=== PATIENT | male | born 1935 | race Caucasian/White ===

== ENCOUNTER 2016-12-18 07:47 | Day surgery (SDC) | payer MEDICARE, BC ==
[2016-12-18] MEDS ORDERED: Sodium Chloride 0.9% 10 ML Syringe FLUSH PRN (08:00)
[2016-12-18] MEDS ORDERED: Lactated Ringers 1,000 ML IV SCH (08:00)
[2016-12-18] MEDS ORDERED: Midazolam 1 MG/ML 2 ML SDV ONE ×2 (08:26→09:09)
[2016-12-18] MEDS ORDERED: Propofol 200 MG/20 ML SDV ONE ×2 (08:27→09:09)
[2016-12-18 10:00] VITALS: BP 133/77
--- NOTE | 2016-12-18 10:42 | OR ---
Date of Procedure: 12/18/2016 PREOPERATIVE DIAGNOSIS: Hematuria. POSTOPERATIVE DIAGNOSES: 1. Hematuria. No evidence of pathology. 2. History of benign prostatic hyperplasia. 3. History of cancer of the prostate. PROCEDURE: Cystoscopy. ANESTHESIA: MAC and local. COMPLICATION: None. SPECIMEN: None. DRAIN: None. BLOOD LOSS: None. HISTORY: This is a gentleman who had gross blood with clots, 10/2016. He has had no recurrence and no blood previously. He does have a history of carcinoma of the prostate. We are following with active surveillance. He has negligible lower urinary tract symptoms. WHAT WAS DONE: The patient was placed on the operating table in the lithotomy position. The genitals were prepped and draped sterilely. Xylocaine gel was instilled. Cystoscope was inserted. Urethra is unremarkable. Prostate is large, trilobar, and obstructing. The bladder shows no mucosal lesions, no erythema, and no stones. The bladder was emptied. The cystoscope was removed. He tolerated this without difficulty. APOLLO Olea MD /[id number]
== END 2016-12-18 10:30 | disposition home or self-care (01) ==
LOC: LL.SDS 07:47
PROVIDERS: ATTEND Urology
DX: R31.0 Gross hematuria (principal); I10 Essential (primary) hypertension; E11.9 Type 2 diabetes mellitus without complications; E78.5 Hyperlipidemia, unspecified; M06.9 Rheumatoid arthritis, unspecified; J44.9 Chronic obstructive pulmonary disease, unspecified; D72.829 Elevated white blood cell count, unspecified; Z85.46 Personal history of malignant neoplasm of prostate; Z87.891 Personal history of nicotine dependence; Z86.718 Personal history of other venous thrombosis and embolism; Z86.711 Personal history of pulmonary embolism; Z86.010 Personal history of colon polyps; Z87.01 Personal history of pneumonia (recurrent); Z79.01 Long term (current) use of anticoagulants; Z79.4 Long term (current) use of insulin; Z79.899 Other long term (current) drug therapy; Z98.49 Cataract extraction status, unspecified eye; Z88.8 Allergy status to other drugs, medicaments and biological substances; Z90.49 Acquired absence of other specified parts of digestive tract; Z90.79 Acquired absence of other genital organ(s); Z98.890 Other specified postprocedural states
CPT/HCPCS: 52000; 82962; A4216; J2250; J2704; J7120; 00910-QZ

== ENCOUNTER 2017-06-26 11:28 | Day surgery (SDC) | payer MEDICARE, BC ==
[~2017-06-26 11:28] MED LIST: Lactated Ringers 1,000 ML IV SCH; Sodium Chloride 0.9% 10 ML Syringe FLUSH PRN
[2017-06-26] MEDS ORDERED: Midazolam 1 MG/ML 2 ML SDV ONE ×2 (12:31→12:42)
[2017-06-26] MEDS ORDERED: fentaNYL 100 MCG/2 ML SDV ONE ×2 (12:31→12:42)
[2017-06-26] MEDS ORDERED: Propofol 200 MG/20 ML SDV ONE ×2 (12:32→12:42)
[2017-06-26] MEDS ORDERED: Lidocaine 2% 5 ML SDV ONE (12:42)
--- NOTE | 2017-06-26 12:42 | PCM.HPR ---
H & P Addendum review - H & P Addendum Review Date of Original H & P: 06/20/17 Date Reviewed: 06/26/17 Time Reviewed: 12:41 Patient was Examined: No Changes
--- NOTE | 2017-06-26 13:27 | PCM.OPNOTE ---
- General Post-Op/Procedure Note Date of Surgery/Procedure: 06/26/17 Operative Procedure(s): EGD. Colonoscopy with polypectomy Findings: Normal EGD; Colon Polyps Pre Op Diagnosis: Anemia, hx polyps Post-Op Diagnosis: Same Anesthesia Technique: TOMA Primary Surgeon: Kye Schaefer Anesthesia Provider: Sara Zacarias Complications: None Condition: Good
[2017-06-26 17:59] VITALS: BP 153/91
--- NOTE | 2017-06-27 08:10 | OR ---
Date of Procedure: 06/26/2017 PREOPERATIVE DIAGNOSES: 1. Anemia. 2. History of colon polyps. POSTOPERATIVE DIAGNOSES: 1. Normal EGD. 2. Colon polyps. PROCEDURE: 1. EGD. 2. Colonoscopy with polypectomy. ANESTHESIA: IV sedation. PROCEDURE IN DETAIL: The patient was brought to the procedure room, where he was placed on his left side and IV sedation administered. Oral bite block was placed and the upper endoscope advanced into the esophagus under direct vision without difficulty. Vocal cords were viewed and were normal. There was a small amount of blood-tinged mucosa in the hypopharynx upon withdrawing the scope, but no mucosal abnormalities were noted, and no active bleeding was identified. I suspect there was some minimal scope trauma upon passing into the cervical esophagus initially. The scope was advanced to the 3rd portion of the duodenum. The duodenum and pylorus were normal. Antrum and body of the stomach were normal. Retroflexion reveals a normal-appearing fundus. Squamocolumnar junction is normal. Air was removed from the stomach and the scope withdrawn through the remaining esophagus which appears normal. The patient tolerated this portion of the procedure well. Next, colonoscopy was performed after digital rectal exam was done which was normal. Colonoscope was inserted and advanced to the level of the cecum without difficulty. Cecal position was confirmed by identifying the appendiceal lumen and the ileocecal valve. Prep was good and surfaces were well visualized. In the cecum, was a 6 mm sessile polyp removed with a cautery snare and retrieved in the polyp trap. The remaining ascending colon was normal. In the proximal transverse colon, was a sessile 5 x 8 mm polyp removed with a cautery snare and retrieved in the polyp trap. The remaining transverse colon was normal. In the descending colon at 70 cm, was a 6 mm sessile polyp removed with a cautery snare and retrieved in the polyp trap. The remaining descending and sigmoid colon were normal. Rectum was normal and retroflexion was normal. Air was removed. The scope withdrawn. The patient tolerated the procedure well and returned to recovery in stable condition. I will have the patient follow up with [facility], next week for review of pathology report and further evaluation of the anemia if indicated. APOLLO STORY MD /[id number]
== END 2017-06-26 16:00 | disposition home or self-care (01) ==
LOC: LL.SDS 11:28
PROVIDERS: ATTEND Surgery
DX: D12.0 Benign neoplasm of cecum (principal); D12.3 Benign neoplasm of transverse colon; D12.4 Benign neoplasm of descending colon; E11.9 Type 2 diabetes mellitus without complications; I10 Essential (primary) hypertension; K21.9 Gastro-esophageal reflux disease without esophagitis; M06.9 Rheumatoid arthritis, unspecified; D72.829 Elevated white blood cell count, unspecified; D45 Polycythemia vera; D64.9 Anemia, unspecified; I82.409 Acute embolism and thrombosis of unspecified deep veins of unspecified lower extremity; Z86.010 Personal history of colon polyps; Z79.01 Long term (current) use of anticoagulants; Z79.4 Long term (current) use of insulin
CPT/HCPCS: 00813; 43235; 45385; 82962; 88305; J2250; J2704; J3010; J7120

== ENCOUNTER 2018-06-17 07:38 | Observation (INO) | payer MEDICARE, BC ==
[~2018-06-17 07:38] MED LIST changes: -Lactated Ringers 1,000 ML IV SCH
[2018-06-17] MEDS: Lactated Ringers 1,000 ML IV SCH ×3 (08:15→21:53)
[2018-06-17] MEDS ORDERED: fentaNYL 100 MCG/2 ML SDV ONE ×2 (08:20→08:45)
[2018-06-17] MEDS ORDERED: Propofol 200 MG/20 ML SDV ONE ×2 (08:21→08:45)
[2018-06-17] MEDS ORDERED: ceFAZolin 1 GM Vial ONE (08:45)
[2018-06-17] MEDS ORDERED: Lidocaine 2% HCl 11 ML Jelly Filled Syringe TOP ONE (09:05)
[2018-06-17] MEDS ORDERED: Acetaminophen 325 MG Tab PO PRN (09:30)
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
[2018-06-17] MEDS ORDERED: Dextrose 5%-0.45% NaCl 1,000 ML IV SCH (09:45)
--- NOTE | 2018-06-17 11:08 | OR ---
Date of Procedure: 06/17/2018 PREOPERATIVE DIAGNOSIS: Hematuria with bladder mass evident on CT scan. POSTOPERATIVE DIAGNOSIS: Benign prostatic hyperplasia. PROCEDURE: Redo transurethral resection of the prostate. COMPLICATIONS: None. SPECIMEN: Prostate. DRAINS: A 22-[place] 3-way Sesay catheter to CBI and to gravity. ANESTHESIA: Spinal. BLOOD LOSS: Negligible. HISTORY: This gentleman has a history of carcinoma of the prostate diagnosed by [facility] in 2005. We followed so far with active surveillance. He does have a history of lower urinary tract symptoms, currently with frequency and slow stream. He has had a transurethral resection of the prostate in 08/2013. WHAT WAS DONE: The patient was placed on the operating table in the lithotomy position under spinal anesthesia. The genitals were prepped and draped sterilely. Examination of the bladder revealed just regrowth-left lateral lobe projecting into the bladder. I see no other bladder lesions. The left lateral lobe was reresected down to the contours of the circular fibers of the bladder neck and smoothed down onto the prostate wall and floor. Specimen was removed from the prostate. Hemostasis was assured with electrocautery. Scope was removed. Sesay catheter was inserted. He tolerated this procedure without difficulty. APOLLO Olea MD /[id number]
[2018-06-17] MEDS: Metoprolol Tartrate 25 MG Tab PO SCH ×2 (13:54→18:13)
[2018-06-17] MEDS: amLODIPine 5 MG Tab PO SCH (13:54)
[2018-06-17] MEDS: metFORMIN 500 MG Tab PO SCH (18:13)
[2018-06-17] MEDS ORDERED: Insulin Lispro 100 Units/ML 3 ML Vial SUBCUT ONE (21:30)
[2018-06-18] MEDS: Lactated Ringers 1,000 ML IV SCH (05:55)
[2018-06-18] MEDS ORDERED: Aspirin 81 MG Tab.EC PO SCH (08:00)
[2018-06-18] MEDS ORDERED: Dutasteride 0.5 MG Cap PO SCH (08:00)
[2018-06-18] MEDS ORDERED: Apixaban 5 MG Tab PO SCH (08:00)
[2018-06-18 08:03] VITALS: BP 144/75
[2018-06-18] MEDS: Metoprolol Tartrate 25 MG Tab PO SCH (08:07)
[2018-06-18] MEDS: amLODIPine 5 MG Tab PO SCH (08:07)
[2018-06-18] MEDS: metFORMIN 500 MG Tab PO SCH (08:08)
--- NOTE | 2018-06-18 11:47 | PCM.PN ---
- General Info Date of Service: 06/18/18 Admission Dx/Problem (Free Text): Admission Diagnosis/Problem Admission Diagnosis/Problem BPH loc w urin obs/LUTS Functional Status: Reports: Pain Controlled, Tolerating Diet, Ambulating, Urinating - Review of Systems General: Reports: No Symptoms HEENT: Reports: No Symptoms Pulmonary: Reports: No Symptoms Cardiovascular: Reports: No Symptoms Gastrointestinal: Reports: No Symptoms Genitourinary: Reports: Frequency Musculoskeletal: Reports: No Symptoms Skin: Reports: No Symptoms Neurological: Reports: No Symptoms Psychiatric: Reports: No Symptoms - Patient Data Vitals - Most Recent: Last Vital Signs Temp 99.0 F 06/18/18 08:00 Pulse 98 06/18/18 08:07 Resp 17 06/18/18 08:00 BP 144/75 H 06/18/18 08:07 Pulse Ox 92 L 06/18/18 08:00 Weight - Most Recent: 175 lb 11.2 oz I&O - Last 24 Hours: Intake & Output 06/17/18 06/18/18 06/18/18 22:59 06:59 14:59 Intake Total 6350 4101 460 Output Total 5600 4075 Balance 750 26 460 Lab Results Last 24 Hours: Laboratory Results - last 24 hr 06/17/18 06/17/18 06/18/18 Range/Units 16:57 20:32 01:48 POC Glucose 393 H* 411 H* 172 H (65-110) mg/dl 06/18/18 06/18/18 Range/Units 07:32 11:27 POC Glucose 142 H 240 H (65-110) mg/dl Med Orders - Current: Current Medications Acetaminophen (Tylenol) 650 mg PO Q4H PRN PRN Reason: analgesia/fever Amlodipine Besylate (Norvasc) 5 mg PO DAILY [facility] Last Admin: 06/18/18 08:07 Dose: 5 mg Apixaban (Eliquis) 5 mg PO BID [facility] Last Admin: 06/18/18 08:07 Dose: 5 mg Aspirin (Halfprin) 81 mg PO DAILY [facility] Last Admin: 06/18/18 08:07 Dose: 81 mg Dutasteride (Avodart) 0.5 mg PO DAILY [facility] Last Admin: 06/18/18 08:08 Dose: 0.5 mg Lactated Ringer's (Ringers, Lactated) 1,000 mls @ 125 mls/hr IV ASDIRECTED [facility] Last Admin: 06/18/18 05:55 Dose: 125 mls/hr Metformin HCl (Glucophage) 1,000 mg PO BID [facility] Last Admin: 06/18/18 08:08 Dose: 1,000 mg Metoprolol Tartrate (Lopressor) 25 mg PO BID [facility] Last Admin: 06/18/18 08:07 Dose: 25 mg Insulin Detemir [ (Levemir]) 24 unit SUBCUT BEDTIME [facility] Last Admin: 06/17/18 19:24 Dose: 24 unit Sodium Chloride (Saline Flush) 10 ml FLUSH ASDIRECTED PRN PRN Reason: Keep Vein Open Discontinued Medications Cefazolin Sodium (Ancef) 2 gm .ROUTE .STK-MED ONE Stop: 06/17/18 08:46 Fentanyl (Sublimaze) Confirm Administered Dose 100 mcg .ROUTE .STK-MED ONE Stop: 06/17/18 08:21 Last Admin: 06/17/18 12:40 Dose: Not Given Fentanyl (Sublimaze) 100 mcg .ROUTE .STK-MED ONE Stop: 06/17/18 08:46 Dextrose/Sodium Chloride (Dextrose 5%-1/2 Ns) 1,000 mls @ 75 mls/hr IV ASDIRECTED [facility] Stop: 06/18/18 08:00 Insulin Human Lispro (Humalog) 10 unit SUBCUT ONETIME ONE Stop: 06/17/18 21:31 Last Admin: 06/17/18 21:49 Dose: 10 unit Lidocaine HCl (Glydo) 11 ml TOP .STK-MED ONE Stop: 06/17/18 09:06 Last Admin: 06/17/18 09:05 Dose: 11 ml Propofol (Diprivan 20 Ml) Confirm Administered Dose 800 mg .ROUTE .STK-MED ONE Stop: 06/17/18 08:22 Last Admin: 06/17/18 12:40 Dose: Not Given Propofol (Diprivan 20 Ml) 400 mg .ROUTE .STK-MED ONE Stop: 06/17/18 08:46 - Exam Quality Assessment: Supplemental Oxygen, DVT Prophylaxis (already on aspirin and Eliquis) General: Alert, Cooperative, No Acute Distress HEENT: Mucous Membr. Moist/[place] Neck: Trachea Midline, No JVD Lungs: Clear to Auscultation, Normal Respiratory Effort Cardiovascular: Regular Rate, Regular Rhythm GI/Abdominal Exam: Soft, Non-Tender (Male) Exam: Deferred Back Exam: Normal Inspection Extremities: Normal Inspection, Non-Tender Skin: Warm, Dry, Intact Neurological: No New Focal Deficit Psy/Mental Status: Alert, Normal Affect, Normal Mood - Problem List & Annotations (1) BPH loc w urin obs/LUTS SNOMED Code(s): 906685002 Code(s): N40.1 - BENIGN PROSTATIC HYPERPLASIA WITH LOWER URINARY TRACT SYMP Status: Acute Priority: High Current Visit: Yes (2) S/P TURP (transurethral resection of prostate) SNOMED Code(s): 636785780, 67262676, 238285912 Code(s): Z90.79 - ACQUIRED ABSENCE OF OTHER GENITAL ORGAN(S) Status: Acute Current Visit: Yes Annotation/Comment:: redo of TURP 06-17-18 (3) Arthritis or polyarthritis, rheumatoid SNOMED Code(s): 47242145 Code(s): M06.9 - RHEUMATOID ARTHRITIS, UNSPECIFIED Status: Acute Priority : Medium Current Visit: No (4) COPD (chronic obstructive pulmonary disease) SNOMED Code(s): 26563684 Code(s): J44.9 - CHRONIC OBSTRUCTIVE PULMONARY DISEASE, UNSPECIFIED Status : Acute Priority: High Current Visit: No Qualifiers: COPD type: emphysema Emphysema type: panlobular Qualified Code(s): J43.1 - Panlobular emphysema (5) Diabetes mellitus SNOMED Code(s): 77577658 Code(s): E11.9 - TYPE 2 DIABETES MELLITUS WITHOUT COMPLICATIONS Status: Acute Current Visit: No Qualifiers: Diabetes mellitus type: type 2 Diabetes mellitus terminal block assembler insulin use: with penitentiary use Diabetes mellitus complication status: without complication Qualified Code(s): E11.9 - Type 2 diabetes mellitus without complications; Z79.4 - terminal block assembler (current) use of insulin (6) Monoclonal gammopathy of unknown significance (MGUS) SNOMED Code(s): 313121540 Code(s): D47.2 - MONOCLONAL GAMMOPATHY Status: Acute Priority: Medium Current Visit: No (7) Myeloproliferative neoplasm SNOMED Code(s): 645065957 Code(s): D47.1 - CHRONIC MYELOPROLIFERATIVE DISEASE Status: Acute Priority: Medium Current Visit: No (8) Polycythemia vera SNOMED Code(s): 357395945 Code(s): D45 - POLYCYTHEMIA VERA Status: Acute Priority: Medium Current Visit: No (9) Renal insufficiency SNOMED Code(s): 668588264, 588781550 Code(s): N28.9 - DISORDER OF KIDNEY AND URETER, UNSPECIFIED Status: Acute Priority: Medium Current Visit: No Onset Date: 07/24/15 Annotation/ Comment:: Mild acute renal insufficiency today with no CTA of the chest conducted in the emergency room secondary to patient's current condition and renal insufficiency. Dr. Domínguez is in agreement with this treatment plan. Note previous history of recurrent PE is as above, however INR is therapeutic today. IV fluids with caution as above (10) IDDM (insulin dependent diabetes mellitus) SNOMED Code(s): 55995369 Code(s): E11.9 - TYPE 2 DIABETES MELLITUS WITHOUT COMPLICATIONS; Z79.4 - CUSTODIAL (CURRENT) USE OF INSULIN Status: Chronic Priority: Medium Current Visit: No Annotation/Comment:: The patient did not take his blood sugar or morning medications, although he did take his insulin yesterday evening. Moderately elevated fasting glucose mildly elevated glycosylated hemoglobin today. Continue to observe closely during upcoming hospitalization and by his regular provider (11) Osteoarthritis SNOMED Code(s): 037579788 Code(s): M19.90 - UNSPECIFIED OSTEOARTHRITIS, UNSPECIFIED SITE Status: Chronic Priority: Medium Current Visit: No Qualifiers: Osteoarthritis location: multiple joints Osteoarthritis type: primary Qualified Code(s): M15.0 - Primary generalized (osteo)arthritis Annotation/Comment:: Stable by patient history - Problem List Review Problem List Initiated/Reviewed/Updated: Yes - My Orders Last 24 Hours: My Active Orders 06/18/18 11:35 Discontinue Saline Lock [Peripheral IV Discontinue] [OM.PC] Routine 06/18/18 11:41 Ready for Discharge [RC] PER UNIT ROUTINE - Plan Plan:: Dr [facility] to assume care. Patient top stay overnight as standard for this procedure. 06/18/18 Ghislaine Moreno MD He has voided x3 and +bm. Ready for discharge. Discussion on his insulins and adding the post prandial insulin. He prefers the pen and is in agreement. Novolog added.
--- NOTE | 2018-06-18 11:49 | PCM.DCSUM1 ---
Discharge Summary - Hospital Course Diagnosis: Stroke: No - Discharge Data Discharge Date: 06/18/18 Discharge Disposition: Home, Self-Care 01 Condition: Good - Discharge Diagnosis/Problem(s) (1) BPH loc w urin obs/LUTS SNOMED Code(s): 961978080 ICD Code: N40.1 - BENIGN PROSTATIC HYPERPLASIA WITH LOWER URINARY TRACT SYMP Status: Acute Priority: High Current Visit: Yes (2) S/P TURP (transurethral resection of prostate) SNOMED Code(s): 554773642, 63658549, 803591814 ICD Code: Z90.79 - ACQUIRED ABSENCE OF OTHER GENITAL ORGAN(S) Status: Acute Current Visit: Yes Problem Details: redo of TURP 06-17-18 (3) Arthritis or polyarthritis, rheumatoid SNOMED Code(s): 66791053 ICD Code: M06.9 - RHEUMATOID ARTHRITIS, UNSPECIFIED Status: Acute Priority: Medium Current Visit: No (4) COPD (chronic obstructive pulmonary disease) SNOMED Code(s): 99844002 ICD Code: J44.9 - CHRONIC OBSTRUCTIVE PULMONARY DISEASE, UNSPECIFIED Status : Acute Priority: High Current Visit: No Qualifiers: COPD type: emphysema Emphysema type: panlobular Qualified Code(s): J43.1 - Panlobular emphysema (5) Diabetes mellitus SNOMED Code(s): 58536025 ICD Code: E11.9 - TYPE 2 DIABETES MELLITUS WITHOUT COMPLICATIONS Status: Acute Current Visit: No Qualifiers: Diabetes mellitus type: type 2 Diabetes mellitus group home insulin use: with group home use Diabetes mellitus complication status: without complication Qualified Code(s): E11.9 - Type 2 diabetes mellitus without complications; Z79.4 - babysitter (current) use of insulin (6) Monoclonal gammopathy of unknown significance (MGUS) SNOMED Code(s): 308072175 ICD Code: D47.2 - MONOCLONAL GAMMOPATHY Status: Acute Priority: Medium Current Visit: No (7) Myeloproliferative neoplasm SNOMED Code(s): 565346732 ICD Code: D47.1 - CHRONIC MYELOPROLIFERATIVE DISEASE Status: Acute Priority: Medium Current Visit: No (8) Polycythemia vera SNOMED Code(s): 895852084 ICD Code: D45 - POLYCYTHEMIA VERA Status: Acute Priority: Medium Current Visit: No (9) Renal insufficiency SNOMED Code(s): 452466019, 316169857 ICD Code: N28.9 - DISORDER OF KIDNEY AND URETER, UNSPECIFIED Status: Acute Priority: Medium Current Visit: No Onset Date: 07/24/15 Problem Details : Mild acute renal insufficiency today with no CTA of the chest conducted in the emergency room secondary to patient's current condition and renal insufficiency. Dr. Domínguez is in agreement with this treatment plan. Note previous history of recurrent PE is as above, however INR is therapeutic today. IV fluids with caution as above (10) IDDM (insulin dependent diabetes mellitus) SNOMED Code(s): 96168839 ICD Code: E11.9 - TYPE 2 DIABETES MELLITUS WITHOUT COMPLICATIONS; Z79.4 - SENIOR CARE (CURRENT) USE OF INSULIN Status: Chronic Priority: Medium Current Visit: No Problem Details: The patient did not take his blood sugar or morning medications, although he did take his insulin yesterday evening. Moderately elevated fasting glucose mildly elevated glycosylated hemoglobin today. Continue to observe closely during upcoming hospitalization and by his regular provider (11) Osteoarthritis SNOMED Code(s): 886138529 ICD Code: M19.90 - UNSPECIFIED OSTEOARTHRITIS, UNSPECIFIED SITE Status: Chronic Priority: Medium Current Visit: No Problem Details: Stable by patient history Qualifiers: Osteoarthritis location: multiple joints Osteoarthritis type: primary Qualified Code(s): M15.0 - Primary generalized (osteo)arthritis - Patient Instructions Diet: Diabetic Diet Activity: As Tolerated Driving: May Drive Today Showering/Bathing: May Shower Notify Provider of: Fever, Increased Pain - Discharge Plan *PRESCRIPTION DRUG MONITORING PROGRAM REVIEWED*: Not Applicable *COPY OF PRESCRIPTION DRUG MONITORING REPORT IN PATIENT NATALIA: Not Applicable Prescriptions/Med Rec: Insulin Aspart [NovoLOG] 5 unit SQ BID@0800,1800 #3 pen Home Medications: Home Meds Metoprolol Tartrate 25 mg PO BID 12/18/16 [History] amLODIPine [Norvasc] 5 mg PO DAILY 12/18/16 [History] Apixaban [Eliquis] 5 mg PO BID 06/16/18 [History] Aspirin [Halfprin] 81 mg PO DAILY 06/16/18 [History] Dutasteride 0.5 mg PO DAILY 06/16/18 [History] Insulin Detemir [Levemir] 24 unit SUBCUT BEDTIME 06/16/18 [History] Tamsulosin HCl [Flomax] 0.4 mg PO DAILY 06/16/18 [History] metFORMIN HCl [Metformin HCl] 1,000 mg PO BID 06/16/18 [History] Insulin Aspart [NovoLOG] 5 unit SQ BID@0800,1800 #3 pen 06/18/18 [Rx] Oxygen Therapy Mode: Nasal Cannula Oxygen Flow Rate (L/min): 2 Patient Handouts: Transurethral Resection of the Prostate, Transurethral Resection of the Prostate, Care After Referrals: Byron Olea MD [Physician] - 07/15/18 (Patient to follow up in one month with Dr. Olea at [facility] in [place]. ) - Discharge Summary/Plan Comment DC Time >30 min.: No - Patient Data Vitals - Most Recent: Last Vital Signs Temp 99.0 F 06/18/18 08:00 Pulse 98 06/18/18 08:07 Resp 17 06/18/18 08:00 BP 144/75 H 06/18/18 08:07 Pulse Ox 92 L 06/18/18 08:00 Weight - Most Recent: 175 lb 11.2 oz I&O - Last 24 hours: Intake & Output 06/17/18 06/18/18 06/18/18 22:59 06:59 14:59 Intake Total 6350 4101 460 Output Total 5600 4075 Balance 750 26 460 Lab Results - Last 24 hrs: Laboratory Results - last 24 hr 06/17/18 06/17/18 06/18/18 Range/Units 16:57 20:32 01:48 POC Glucose 393 H* 411 H* 172 H (65-110) mg/dl 06/18/18 06/18/18 Range/Units 07:32 11:27 POC Glucose 142 H 240 H (65-110) mg/dl Med Orders - Current: Current Medications Acetaminophen (Tylenol) 650 mg PO Q4H PRN PRN Reason: analgesia/fever Amlodipine Besylate (Norvasc) 5 mg PO DAILY [facility] Last Admin: 06/18/18 08:07 Dose: 5 mg Apixaban (Eliquis) 5 mg PO BID [facility] Last Admin: 06/18/18 08:07 Dose: 5 mg Aspirin (Halfprin) 81 mg PO DAILY [facility] Last Admin: 06/18/18 08:07 Dose: 81 mg Dutasteride (Avodart) 0.5 mg PO DAILY [facility] Last Admin: 06/18/18 08:08 Dose: 0.5 mg Lactated Ringer's (Ringers, Lactated) 1,000 mls @ 125 mls/hr IV ASDIRECTED [facility] Last Admin: 06/18/18 05:55 Dose: 125 mls/hr Metformin HCl (Glucophage) 1,000 mg PO BID [facility] Last Admin: 06/18/18 08:08 Dose: 1,000 mg Metoprolol Tartrate (Lopressor) 25 mg PO BID [facility] Last Admin: 06/18/18 08:07 Dose: 25 mg Insulin Detemir [ (Levemir]) 24 unit SUBCUT BEDTIME [facility] Last Admin: 06/17/18 19:24 Dose: 24 unit Sodium Chloride (Saline Flush) 10 ml FLUSH ASDIRECTED PRN PRN Reason: Keep Vein Open Discontinued Medications Cefazolin Sodium (Ancef) 2 gm .ROUTE .STK-MED ONE Stop: 06/17/18 08:46 Fentanyl (Sublimaze) Confirm Administered Dose 100 mcg .ROUTE .STK-MED ONE Stop: 06/17/18 08:21 Last Admin: 06/17/18 12:40 Dose: Not Given Fentanyl (Sublimaze) 100 mcg .ROUTE .STK-MED ONE Stop: 06/17/18 08:46 Dextrose/Sodium Chloride (Dextrose 5%-1/2 Ns) 1,000 mls @ 75 mls/hr IV ASDIRECTED [facility] Stop: 06/18/18 08:00 Insulin Human Lispro (Humalog) 10 unit SUBCUT ONETIME ONE Stop: 06/17/18 21:31 Last Admin: 06/17/18 21:49 Dose: 10 unit Lidocaine HCl (Glydo) 11 ml TOP .STK-MED ONE Stop: 06/17/18 09:06 Last Admin: 06/17/18 09:05 Dose: 11 ml Propofol (Diprivan 20 Ml) Confirm Administered Dose 800 mg .ROUTE .STK-MED ONE Stop: 06/17/18 08:22 Last Admin: 06/17/18 12:40 Dose: Not Given Propofol (Diprivan 20 Ml) 400 mg .ROUTE .STK-MED ONE Stop: 06/17/18 08:46
== END 2018-06-18 12:00 | disposition home or self-care (01) ==
LOC: LL.SDS 07:38 → LL.MS 12:46
PROVIDERS: ADMIT Family Medicine; ATTEND Family Medicine
DX: C61 Malignant neoplasm of prostate (principal); I10 Essential (primary) hypertension; E11.9 Type 2 diabetes mellitus without complications; J44.9 Chronic obstructive pulmonary disease, unspecified; D47.2 Monoclonal gammopathy; D47.1 Chronic myeloproliferative disease; D45 Polycythemia vera; M06.9 Rheumatoid arthritis, unspecified; M15.0 Primary generalized (osteo)arthritis; N28.89 Other specified disorders of kidney and ureter; Z88.8 Allergy status to other drugs, medicaments and biological substances; Z87.891 Personal history of nicotine dependence; Z79.01 Long term (current) use of anticoagulants; Z79.4 Long term (current) use of insulin; Z79.82 Long term (current) use of aspirin; Z79.899 Other long term (current) drug therapy
CPT/HCPCS: 82962; A4216; A9270-GY; J0690; J1815; J2704; J3010; J7120